=== PATIENT | male | born 1980 | race Caucasian/White ===

== ENCOUNTER → 2017-05-26 | Outpatient (CLI) | payer OTHER ==
[~2017-05-26] MED LIST: CYCL10 PO; Cyclobenzaprine5 MG PO; HYDHCL25 PO; IBUP800 PO; KETO10 PO; METO10SY PO; METO5A; Norco 10-325 T1 EACH PO; Norco 5-325 Ta1 EACH PO; Omeprazole20 M1 PO; PRAZ1 PO; Phenergan6.25 MG/5 PO; Zofran Odt4 MG SL
[2017-05-28 18:57] LABS: Codeine Not Detected (NOTDET); Hydrocodone 1693 ng/mL (NOTDET); Hydromorphone 1136 ng/mL (NOTDET); Morphine Not Detected (NOTDET); Norhydrocodone 3587 ng/mL (NOTDET); Noroxycodone Not Detected (NOTDET)
[2017-05-28 21:56] LABS: Alpha Hyrdroxyalprazolam >500 ng/mL (NOTDET); Alpha hydroxytriazolam Not Detected (NOTDET); Alprazolam 170.1 ng/mL (NOTDET); Confirm Clonazepam LC/MS Not Detected (NOTDET); Confirm Flunitrazepam LC/MS Not Detected (NOTDET); Diazepam Not Detected (NOTDET); Flurazepam Not Detected (NOTDET); Lorazepam Not Detected (NOTDET); Midazolam Not Detected (NOTDET); Temazepam Not Detected (NOTDET)
== END ==
LOC: LAB 11:45 → LAB SHORT 11:45
PROVIDERS: Registered Nurse Psychiatric/Mental Health
DX: F41.1 Generalized anxiety disorder (principal); Z79.899 Other long term (current) drug therapy
CPT/HCPCS: G0480

== ENCOUNTER 2017-06-23 07:45 | Day surgery (SDC) | payer OTHER ==
[~2017-06-23] VITALS: Ht 208.3 cm; Wt 69.4 kg
[~2017-06-23 07:45] MED LIST changes: -CYCL10 PO; -Cyclobenzaprine5 MG PO; -KETO10 PO; -METO5A; -Norco 5-325 Ta1 EACH PO; -Zofran Odt4 MG SL
[2017-11-22] MEDS ORDERED: METO5A (10:35)
[2017-11-22] MEDS ORDERED: KETO10 PO (11:54)
== END 2017-06-23 22:34 | disposition home or self-care (01) ==
LOC: ORSCMMR 07:45 → ORD 09:15 → ORSCMMR 09:15
PROVIDERS: Surgery
PROC: BF031ZZ Plain Radiography of Gallbladder and Bile Ducts using Low Osmolar Contrast (ICD-10-PCS; principal; 2017-06-23 09:15)
PROC: 0FT44ZZ Resection of Gallbladder, Percutaneous Endoscopic Approach (ICD-10-PCS; principal; 2017-06-23 09:15)
DX: K80.11 Calculus of gallbladder with chronic cholecystitis with obstruction (principal); R10.11 Right upper quadrant pain; F17.210 Nicotine dependence, cigarettes, uncomplicated; F41.8 Other specified anxiety disorders; Z79.899 Other long term (current) drug therapy
CPT/HCPCS: 74300; 88304; C1729; J0690; J1100; J1170; J1885; J2250; J2405; J3010; J7030; J7120

== ENCOUNTER 2017-08-02 21:39 | Emergency (ER) | payer OTHER ==
[~2017-08-02] VITALS: Ht 180.3 cm; Wt 65.8 kg
[2017-08-02 22:56] LABS: Source, Urine Clean Catch
[2017-08-02 23:00] LABS: Bilirubin, Urine Neg (Neg); Blood, Urine Neg (Neg); Glucose Qualitative, Urine Neg (Neg); Ketones, Urine 1+ (Neg); Leukocyte Esterase, Urine Neg (Neg); Nitrite, Urine Neg (Neg); Protein, Urine 1+ (Neg); Urobilinogen, Urine 1+ (Normal); pH, Urine 6.5 (5.0-8.0)
[2017-08-02 23:00] LABS: BASOPHILS ABSOLUTE AUTO 0.05 K/mm3 (0.00-0.23); BASOPHILS PERCENT AUTO 1 % (0-2); EOSINOPHILS ABSOLUTE AUTO 0.05 K/mm3 (0.00-0.68); EOSINOPHILS PERCENT AUTO 1 % (0-6); Hematocrit 40.3 % (37.0-53.0); Hemoglobin 13.3 g/dL (13.5-17.5); IMMATURE GRAN ABSOLUTE AUTO 0.03 K/mm3 (0.00-0.10); IMMATURE GRAN PERCENT AUTO 0 % (0-1); LYMPHOCYTES ABSOLUTE AUTO 2.44 K/mm3 (0.84-5.20); LYMPHOCYTES PERCENT AUTO 32 % (21-46); MONOCYTES ABSOLUTE AUTO 0.62 K/mm3 (0.16-1.47); MONOCYTES PERCENT AUTO 8 % (4-13); Mean Corpuscular HGB 29.5 pg (26.0-34.0); Mean Corpuscular Volume 89 fL (80-100); Mean Platelet Volume 9.2 fL (9.1-12.4); NEUTROPHILS ABSOLUTE AUTO 4.52 K/mm3 (1.96-9.15); NEUTROPHILS PERCENT AUTO 59 % (41-73); Platelet Count 378 K/mm3 (150-400); RDW Coefficient Variation 13.8 % (11.7-14.2); RDW Standard Deviation 45.1 fL (35.1-46.3); Red Blood Cell Count 4.51 M/mm3 (4.30-5.90); White Blood Cell Count 7.71 K/mm3 (4.00-11.30)
[2017-08-02 23:12] LABS: Appearance, Urine Clear (Clear); Color, Urine Yellow (P-Yellow)
[2017-08-02 23:36] LABS: Alanine Aminotransfer (ALT/SGP 56 U/L (12-78); Albumin, Blood 3.7 g/dL (3.4-5.0); Albumin/Globulin Ratio 0.9 (0.8-1.8); Alk Phos 40 U/L (50-136); Anion Gap 6 mmol/L (6-16); Aspartate Aminotrans (AST/SGOT 25 U/L (12-37); Bilirubin, Total 0.4 mg/dL (0.1-1.0); Blood Urea Nitrogen 15 mg/dL (8-24); Bun/Creatinine Ratio 15.5 (12.0-20.0); CO2, Blood 28 mmol/L (21-32); Calcium, Blood 9.1 mg/dL (8.5-10.1); Chloride, Blood 108 mmol/L (98-108); Creatinine, Blood 0.97 mg/dL (0.60-1.20); Globulin, Blood 3.9 g/dL (2.2-4.0); Glomerular Filtration Rate >60 (60-); Glucose, Blood 88 mg/dL (70-99); Potassium, Blood 3.8 mmol/L (3.5-5.5); Sodium, Blood 142 mmol/L (136-145); Total Protein, Blood 7.6 g/dL (6.4-8.2)
[2017-08-03] MEDS ORDERED: Zofran Odt4 MG SL (01:29)
[2017-08-03] MEDS ORDERED: Norco 10-325 T1 EACH PO (01:29)
== END 2017-08-03 01:50 | disposition home or self-care (01) ==
LOC: ER 21:39
PROVIDERS: Emergency Medicine
DX: R10.11 Right upper quadrant pain (principal); Z79.899 Other long term (current) drug therapy; F17.200 Nicotine dependence, unspecified, uncomplicated
CPT/HCPCS: 36415; 80053; 83690; 85025; 96374; 99283; J2405

== ENCOUNTER 2017-09-27 15:04 | Emergency (ER) | payer OTHER ==
[~2017-09-27] VITALS: Ht 180.3 cm; Wt 63.0 kg
[~2017-09-27 15:04] MED LIST changes: +Zofran Odt4 MG SL
[2017-09-27] MEDS ORDERED: CYCL10 PO (15:09)
[2017-09-27] MEDS ORDERED: Norco 5-325 Ta1 EACH PO (15:41)
[2017-09-27] MEDS ORDERED: Cyclobenzaprine5 MG PO (15:41)
== END 2017-09-27 15:57 | disposition home or self-care (01) ==
LOC: ER 15:04
DX: M62.830 Muscle spasm of back (principal); F17.200 Nicotine dependence, unspecified, uncomplicated
CPT/HCPCS: 96372; 99283; J1885

== ENCOUNTER 2018-06-28 10:00 | Emergency (ER) | payer OTHER ==
[~2018-06-28] VITALS: Ht 182.9 cm; Wt 61.2 kg
[~2018-06-28 10:00] MED LIST changes: +CYCL10 PO; +Cyclobenzaprine5 MG PO; +KETO10 PO; +METO5A; +Norco 5-325 Ta1 EACH PO
[2018-06-28] MEDS ORDERED: IBUP600 PO (11:41)
[2018-06-28] MEDS ORDERED: Norco 5-325 Ta1 EACH PO (11:41)
== END 2018-06-28 11:51 | disposition home or self-care (01) ==
LOC: ER 10:00
DX: M94.0 Chondrocostal junction syndrome [Tietze] (principal); Z87.891 Personal history of nicotine dependence
CPT/HCPCS: 71101; 96372; 99283-25; J1885

== ENCOUNTER 2018-10-14 22:53 | Emergency (ER) | payer OTHER ==
[~2018-10-14] VITALS: Ht 180.3 cm; Wt 61.2 kg
[~2018-10-14 22:53] MED LIST changes: +IBUP600 PO
== END 2018-10-15 00:10 | disposition left against medical advice (07) ==
LOC: ER 22:53
DX: Z53.21 Procedure and treatment not carried out due to patient leaving prior to being seen by health care provider (principal)

== ENCOUNTER 2018-10-16 19:17 | Emergency (ER) | payer OTHER ==
[~2018-10-16] VITALS: Ht 180.3 cm; Wt 61.2 kg
[2018-10-16 20:52] LABS: Source, Urine Clean Catch
[2018-10-16 20:55] LABS: Bilirubin, Urine Neg (Neg); Blood, Urine 1+ (Neg); Glucose Qualitative, Urine Neg (Neg); Ketones, Urine Neg (Neg); Leukocyte Esterase, Urine 1+ (Neg); Nitrite, Urine Neg (Neg); Protein, Urine 1+ (Neg); Urobilinogen, Urine NORM (Normal)
[2018-10-16 21:02] LABS: Amorphous Light (0-Heavy); Appearance, Urine Clear (Clear); Bacteria Rare /hpf; Color, Urine Yellow (P-Yellow); Mucus Light (0-Heavy); Red Blood Cells, Urine 0-2 /hpf (0-2); Squamous Epithelial Cells Not Seen /hpf (Few); White Blood Cells, Urine 0-2 /hpf (0-5)
[2018-10-16 21:35] LABS: BASOPHILS ABSOLUTE AUTO 0.04 K/mm3 (0.00-0.23); BASOPHILS PERCENT AUTO 1 % (0-2); EOSINOPHILS ABSOLUTE AUTO 0.17 K/mm3 (0.00-0.68); EOSINOPHILS PERCENT AUTO 2 % (0-6); Hematocrit 43.7 % (37.0-53.0); Hemoglobin 13.8 g/dL (13.5-17.5); IMMATURE GRAN ABSOLUTE AUTO 0.01 K/mm3 (0.00-0.10); IMMATURE GRAN PERCENT AUTO 0 % (0-1); LYMPHOCYTES ABSOLUTE AUTO 2.57 K/mm3 (0.84-5.20); LYMPHOCYTES PERCENT AUTO 30 % (21-46); MONOCYTES ABSOLUTE AUTO 0.93 K/mm3 (0.16-1.47); MONOCYTES PERCENT AUTO 11 % (4-13); Mean Corpuscular HGB 29.7 pg (26.0-34.0); Mean Corpuscular HGB Conc 31.6 g/dL (31.5-36.5); Mean Corpuscular Volume 94 fL (80-100); Mean Platelet Volume 9.8 fL (9.1-12.4); NEUTROPHILS PERCENT AUTO 57 % (41-73); Platelet Count 326 K/mm3 (150-400); RDW Standard Deviation 48.4 fL (35.1-46.3); Red Blood Cell Count 4.65 M/mm3 (4.30-5.90); White Blood Cell Count 8.62 K/mm3 (4.00-11.30)
[2018-10-16 21:54] LABS: Alanine Aminotransfer (ALT/SGP 21 U/L (12-78); Albumin, Blood 3.5 g/dL (3.4-5.0); Alk Phos 40 U/L (50-136); Anion Gap 4 mmol/L (6-16); Aspartate Aminotrans (AST/SGOT 16 U/L (12-37); Bilirubin, Total 0.4 mg/dL (0.1-1.0); Blood Urea Nitrogen 4 mg/dL (8-24); Bun/Creatinine Ratio 4.2 (12.0-20.0); CO2, Blood 33 mmol/L (21-32); Calcium, Blood 8.8 mg/dL (8.5-10.1); Chloride, Blood 105 mmol/L (98-108); Creatinine, Blood 0.94 mg/dL (0.60-1.20); Globulin, Blood 3.4 g/dL (2.2-4.0); Glomerular Filtration Rate >60 (60-); Glucose, Blood 81 mg/dL (70-99); Potassium, Blood 3.8 mmol/L (3.5-5.5); Sodium, Blood 142 mmol/L (136-145); Total Protein, Blood 6.9 g/dL (6.4-8.2)
[2018-10-17] MEDS ORDERED: PROM25 PO (00:06)
[2018-10-17] MEDS ORDERED: Bentyl10 MG PO (00:06)
== END 2018-10-17 00:14 | disposition home or self-care (01) ==
LOC: ER 19:17
PROVIDERS: Physician Assistant
DX: K52.9 Noninfective gastroenteritis and colitis, unspecified (principal); N28.1 Cyst of kidney, acquired; Z87.891 Personal history of nicotine dependence
CPT/HCPCS: 36415; 74177; 76857; 80053; 81001; 83690; 85025; 87086; 99284-25; Q9967